=== PATIENT | female | born 1945 | race Caucasian/White ===

== ENCOUNTER 2024-12-05 10:07 | Observation (INO) | payer MEDICARE, OTHER, SELFPAY ==
[2024-12-05] VITALS (8 sets, daily range): BP systolic 133–165; BP diastolic 53–77; PULSE 57–65; RESP 15–97; TEMP 35.6–36.7; O2SAT 18–98; BMI 25.9; BMI 26.0; BMI 26.6
--- NOTE | 2024-12-05 10:31 | EKG12_ITS ---
Test Reason : NEURO Blood Pressure : */* mmHG Vent. Rate : 60 BPM Atrial Rate : 60 BPM P-R Int : 154 ms QRS Dur : 84 ms QT Int : 406 ms P-R-T Axes : 64 -16 48 degrees QTcB Int : 406 ms Normal sinus rhythm Normal ECG Confirmed by David Priest ([id number]), map editor CHARLY MORFIN ([id number]) on 12/06/2024 7:46:46 AM Referred By: Confirmed By: David Priest
--- NOTE | 2024-12-05 10:31 | MRI_ITS ---
PROCEDURE: BRAIN WITHOUT CONTRAST 12/05/2024 REASON FOR EXAM: 79-year-old female, intermittent visual loss since fall approximately 1 month ago, unspecified laterally. TECHNIQUE: Noncontrast brain MRI. COMPARISON: None. FINDINGS: Brain: Mild cerebral atrophy and chronic periventricular white matter disease. No abnormal areas of parenchymal restricted diffusion to suggest acute ischemia or infarction. Ventricles: Consistent with the overall degree of cerebral atrophy. No ventriculomegaly. Major Intracranial Vessels: Abnormal increased signal on T2 FLAIR imaging within the left internal jugular vein, which partially extends into the proximal left transverse sinus (for example series 5, images 2- 4, and series 5, image 6). Sinuses: The mastoids and visualized paranasal sinuses are well-aerated. Orbits: Retained metallic foreign body within the medial right orbit, presumably from prior cataract surgery. Streak artifact slightly limits orbit evaluation. MRI/Brain without Contrast IMPRESSION: 1. Abnormal increased signal on T2 imaging within the left internal jugular vei n, extending into the proximal left transverse sinus, concerning for thrombus. MRV is recommended for further evaluation. 2. No abnormal parenchymal restricted diffusion to suggest acute ischemia or in farct. Dr. Hudson discussed these findings with Dr. Gutierrez via telephone at 2:55 pm o n 12/05/24. Reading Location: [id number]
[2024-12-05 11:09] LABS: Absolute Lymphocyte Count 1.54 X10^3/uL (0.83-4.51); Basophil# 0.02 X10^3/uL; Basophil% 0.4 % (0-1); Eosinophils% 1.9 % (0-5); Hematocrit 35.6 % (37-47); Hemoglobin 12.2 g/dL (12.0-15.0); Lymphocyte # 1.54 X10^3/ul (0.83-4.51); Lymphocyte % 29.6 % (19-41); Mean Corp Hgb Conc 34.3 g/dL (32-36); Mean Corpuscular Hgb 31.6 pg (27.0-32.0); Mean Corpuscular Volume 92.2 fL (81-99); Mean Platelet Vol. 9.8 fl (6.2-12.0); Monocyte% 9.6 % (0-10); NRBC Flagged by Analyzer 0 % (0-5); Neutrophil # 3.02 X10^3/uL (2.7-7.7); Neutrophil % 58.1 % (47-70); Platelet Count 179 K/mm3 (150-450); RBC Distribution Width CV 12.8 % (11.6-14.6); RBC Distribution Width SD 43.1 fl (35.1-43.9); Red Blood Count 3.86 M/mm3 (4.2-5.4); White Blood Count 5.2 K/mm3 (4.4-11.0)
--- NOTE | 2024-12-05 11:37 | ED.VIS.STROK ---
[facility] <Dr. Pardeep Gutierrez MD - Last Filed: 12/06/24 08:19> History of Present Illness Chief Complaint: Neuro S/Sx Detail of Chief Complaint: Intermittent visual field loss Informant: patient Onset/Context/Timing Onset: Weeks (Weeks, greater than 1 month) Context: Sudden Onset Timing: Intermittent Onset: Patient states she can be reading and loses sight of some of the words. Sh Current Severity: Gone Maximum Severity: Moderate Worsened by: Nothing Relieved by: Nothing Associated Symptoms Associated Symptoms: Positive for Headache; Negative for Nausea, Vomiting or Chest Pain Narrative Narrative: Patient is a 79-year-old woman. She has history of hypothyroidism. She had a fall when in [place] November 10. She CAT scan at that time that was interpreted as negative and told she had a concussion. Her symptoms started prior to the fall. She had an episode yesterday. She did not come in yesterday because she thought nothing of it since it has been 29 for greater than a month. She told her daughter who recommended she come to the emergency department. Presently patient has no symptoms. She does have a headache with the visual symptoms. Believes it to be bilateral. She does have history of valvular heart disease that is nonrheumatic. She states she does have a known heart murmur. Prior similar symptoms: No Recent Illness/Hospitalization: Yes (Seen at outside facility for traumatic head trauma, concussion) [facility] <Dr. Pardeep Gutierrez MD - Last Filed: 12/06/24 08:19> [facility] Medical History Hypothyroidism Non-smoker Home Medications ?Medication ?Instructions ?Recorded ?Last Taken ?Type aspirin 81 mg tablet,delayed 81 mg PO DAILY 12/05/24 12/05/24 History release (Adult Aspirin Regimen) calcium carbonate (Calcium 600) 1,200 mg PO QHS 12/05/24 12/04/24 History collagen,hydrolysate 500 mg-biotin 3 cap PO QHS supplement 12/05/24 12/05/24 18:00 History 800 mcg-ascorbic acid 50 mg 3 caps capsule (Collagen 1500 Plus C) levothyroxine 88 mcg tablet 88 mcg PO DAILY 12/05/24 12/05/24 History (Euthyrox) multivitamin (Daily Multi-Vitamin 1 tab PO QHS 12/05/24 12/04/24 History tablet) Allergy/AdvReac Type Severity Reaction Status Date / Time No Known Allergies Allergy Verified 12/05/24 10:08 Social History Smoking Status: Never smoker ROS <Dr. Pardeep Gutierrez MD - Last Filed: 12/06/24 08:19> ROS ED Constitutional Constitutional ED: Denies chills, fever(s) or subjective Eyes Eyes: Reports change in vision bilateral; Denies blurry vision or diplopia ENT ENT ED: Denies ear pain, rhinorrhea or sore throat Cardiovascular Cardiovascular: Denies chest pain or palpitations Respiratory/Chest Respiratory/Chest: Denies cough, dyspnea or dyspnea on exertion Gastrointestinal Gastrointestinal: Denies nausea or vomiting Genitourinary Genitourinary ED: Denies dysuria, hematuria or urinary frequency Musculoskeletal Musculoskeletal: Denies arthralgias or myalgias Integumentary Denies rash Neurologic Neurologic: Reports headache(s) and other Details: No problems with coordination or balance. No motor weakness. No troubles with speech or swallowing ; Denies paresthesias or weakness Psychiatric Psychiatric: Denies anxiety Hematologic/Lymphatic Hematologic/Lymphatic: Denies easy bleeding or easy bruising EXAM <Dr. Pardeep Gutierrez MD - Last Filed: 12/06/24 08:19> Physical Exam Const Vital Signs: 12/05/24 10:08 12/05/24 11:08 12/05/24 12:00 Temperature 96.0 F L Temperature Source Temporal Pulse Rate 62 57 L 58 L Respiratory Rate 16 16 15 Blood Pressure 165/69 H 141/61 H 141/61 H Blood Pressure Mean 101 87 87 Pulse Ox 98 96 95 Oxygen Delivery Method Room Air Room Air Room Air 12/05/24 13:00 12/05/24 14:00 12/05/24 16:09 Temperature Temperature Source Pulse Rate 60 61 63 Respiratory Rate 97 H 16 Blood Pressure 141/77 H 142/53 H 133/71 H Blood Pressure Mean 98 82 91 Pulse Ox 18 97 96 Oxygen Delivery Method Room Air 12/05/24 17:40 Temperature 98.0 F Temperature Source Pulse Rate 65 Respiratory Rate 16 Blood Pressure 141/55 H Blood Pressure Mean 83 Pulse Ox 95 Oxygen Delivery Method Positive well nourished and well developed Constitutional Narrative: Blood pressure is elevated. General Appearance ED: well developed HEENT Reports moist mucous membranes atraumatic Nose: other Other Details: Normal. External auditory canal normal. Eyes PERRL and EOMs intact bilaterally Eyes Narrative: There is no nystagmus. There is no APD. General Eye ED: Negative for pale conjunctiva or scleral icterus Neck no lymphadenopathy, supple and no JVD Neck Narrative: Patient is transmission of aortic stenotic murmur to the neck. Chest Wall inspection of chest normal and palpation of chest normal Resp normal respiratory effort and clear to auscultation bilaterally Cardio Cardio Narrative: Patient has a grade 2 AAS murmur and a grade 2 MR murmur. Rate: regular rate Rhythm: regular rhythm Heart Sounds: S1 normal and S2 normal GI normal to inspection, nondistended, normoactive bowel sounds, soft to palpation, non-tender, non-distended and no masses GI Narrative: No palpable pulsatile mass. Extremity normal to inspection Neuro oriented x3, CN's II-XII intact bilaterally and no sensory deficits noted Neuro Narrative: Romberg with eyes open and close normal. Tandem gait is normal. There is no clonus Babinski sign noted. [place] Coma Scale: document GCS findings Spontaneous Obeys Commands Oriented 15 Sensorium / Orientation: alert Speech: speech normal Gait (Neuro): normal gait Motor Exam: strength 5/5 throughout Psych mental status grossly normal Skin no wounds Lesions: no lesions Rashes: no rashes NIHSS NIHSS Initial: 1a Level of Consciousness: 0 1b LOC Questions (Score 2 if aphasic/stupor): 0 1c LOC Commands (Only score 1st attempt): 0 2 Best Gaze (If aphasic, use reflexive mvmts.): 0 3 Visual: 0 4 Facial Palsy: 0 5 Motor Arm Right (UN = amputation/fusion): 0 5 Motor Arm Left: 0 6 Motor Leg Right: 0 6 Motor Leg Left: 0 7 Limb ataxia (Only + if out of proportion): 0 8 Sensory (Aphasia/stupor=0 or 1, coma=2): 0 9 Best Language: 0 10 Dysarthria (mute, coma=2, intubated=UN): 0 11 Extinction and Inattention (only scored if +): 0 Total Score: 0 <Dr. Hector Rojas, DO - Last Filed: 12/05/24 17:24> Physical Exam Const Vital Signs: 12/05/24 10:08 12/05/24 11:08 12/05/24 12:00 Temperature 96.0 F L Temperature Source Temporal Pulse Rate 62 57 L 58 L Respiratory Rate 16 16 15 Blood Pressure 165/69 H 141/61 H 141/61 H Blood Pressure Mean 101 87 87 Pulse Ox 98 96 95 Oxygen Delivery Method Room Air Room Air Room Air 12/05/24 13:00 12/05/24 14:00 12/05/24 16:09 Temperature Temperature Source Pulse Rate 60 61 63 Respiratory Rate 97 H 16 Blood Pressure 141/77 H 142/53 H 133/71 H Blood Pressure Mean 98 82 91 Pulse Ox 18 97 96 Oxygen Delivery Method Room Air 12/05/24 17:40 Temperature 98.0 F Temperature Source Pulse Rate 65 Respiratory Rate 16 Blood Pressure 141/55 H Blood Pressure Mean 83 Pulse Ox 95 Oxygen Delivery Method Neuro [place] Coma Scale: document GCS findings 15 NIHSS NIHSS Initial: Total Score: 0 MDM <Dr. Pardeep Gutierrez MD - Last Filed: 12/06/24 08:19> MDM MDM Narrative Medical decision making narrative: Patient with intermittent visual disturbance/field loss. Presently she has no symptoms and NIH is 0. This may represent a complex migraine, stuttering TIA involving the posterior circulation possible neoplasm. Since patient had a CAT scan November 10 and was unremarkable MRI was ordered. Basic blood work was ordered as well as an ESR to assess for vasculitis. Lab Data Attestation: I reviewed the patient's lab results. Labs: Laboratory Results - last 24 hr 12/05/24 12/05/24 11:00 17:35 WBC 5.2 RBC 3.86 L Hgb 12.2 Hct 35.6 L MCV 92.2 MCH 31.6 MCHC 34.3 RDW Std Deviation 43.1 RDW Coeff of Dillan 12.8 Plt Count 179 MPV 9.8 Immature Gran % (Auto) 0.400 Neut % (Auto) 58.1 Lymph % (Auto) 29.6 [place] % (Auto) 9.6 Eos % (Auto) 1.9 Baso % (Auto) 0.4 Absolute Neuts (auto) 3.0 Absolute Lymphs (auto) 1.54 Nucleated RBC % 0 ESR 15 PT 14.3 INR 1.1 APTT 29.6 Sodium 141 Potassium 4.0 Chloride 106 Carbon Dioxide 23.4 Anion Gap 11 BUN 10 Creatinine 0.78 Estim Creat Clear Calc 54.00 Est GFR (MDRD) Non-Af 78 BUN/Creatinine Ratio 13.2 Glucose 100 H Calcium 9.3 Magnesium 2.1 Radiography Diagnostic Testing: Clinical Impression(s) from Imaging Studies Brain MRI 12/05/24 10:31 IMPRESSION: 1. Abnormal increased signal on T2 imaging within the left internal jugular vein, extending into the proximal left transverse sinus, concerning for thrombus. MRV is recommended for further evaluation. 2. No abnormal parenchymal restricted diffusion to suggest acute ischemia or infarct. Dr. Hudson discussed these findings with Dr. Gutierrez via telephone at 2:55 pm on 12/05/24. 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 Dr. Hudson discussed these findings with Dr. Meza via telephone at 4:15 pm on 12/05/24. Reading Location: [facility] MRV was ordered. Patient was told why an MRV was ordered. EKG Initial EKG: Attestation: I personally reviewed and interpreted this EKG as follows: Interpretation: Sinus Rhythm (CBC is normal rate is 60. The EKG is normal. [place] interval is under 54 ms. QRS duration 84 ms. QT duration 106 ms. [place] is normal. This was obtained to assess for dysrhythmia and or evidence of prior ischemia.) Management Discussion w/another healthcare provider: Radiologist (Radiologist called regarding MRI and recommended DWIGHT. MRV was ordered.) Treatment and Re-Evaluation Narrative: Disposition to be made by Dr. Hector Valentino after MRV has been completed and interpreted by radiologist. <Dr. Hector Rojas, DO - Last Filed: 12/05/24 17:24> [facility] Lab Data Labs: Laboratory Results - last 24 hr 12/05/24 12/05/24 11:00 17:35 WBC 5.2 RBC 3.86 L Hgb 12.2 Hct 35.6 L MCV 92.2 MCH 31.6 MCHC 34.3 RDW Std Deviation 43.1 RDW Coeff of Dillan 12.8 Plt Count 179 MPV 9.8 Immature Gran % (Auto) 0.400 Neut % (Auto) 58.1 Lymph % (Auto) 29.6 [place] % (Auto) 9.6 Eos % (Auto) 1.9 Baso % (Auto) 0.4 Absolute Neuts (auto) 3.0 Absolute Lymphs (auto) 1.54 Nucleated RBC % 0 ESR 15 PT 14.3 INR 1.1 APTT 29.6 Sodium 141 Potassium 4.0 Chloride 106 Carbon Dioxide 23.4 Anion Gap 11 BUN 10 Creatinine 0.78 Estim Creat Clear Calc 54.00 Est GFR (MDRD) Non-Af 78 BUN/Creatinine Ratio 13.2 Glucose 100 H Calcium 9.3 Magnesium 2.1 Radiography Diagnostic Testing: Clinical Impression(s) from Imaging Studies Brain MRI 12/05/24 10:31 IMPRESSION: 1. Abnormal increased signal on T2 imaging within the left internal jugular vein, extending into the proximal left transverse sinus, concerning for thrombus. MRV is recommended for further evaluation. 2. No abnormal parenchymal restricted diffusion to suggest acute ischemia or infarct. Dr. Hudson discussed these findings with Dr. Gutierrez via telephone at 2:55 pm on 12/05/24. 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 Dr. Hudson discussed these findings with Dr. Meza via telephone at 4:15 pm on 12/05/24. Reading Location: [facility] Management Discussion w/another healthcare provider: Hospitalist (Dr. Coley) and Transit Coach Operator (Dr. Perez, stroke neurologist) Treatment and Re-Evaluation Narrative: Disposition to be made by Dr. Hector Rojas after MRV has been completed and interpreted by radiologist. Care of the patient turned over to me. I was notified by radiologist that there is severe stenosis/occlusion of the left transverse sinus and proximal left internal jugular vein. I discussed the findings with the patient. Case was discussed with hospitalist who recommended consulting neurology. Case was discussed with stroke neurologist, Dr. Perez at [facility]. He recommended full dose heparin drip and repeat CT scan when therapeutic. He recommends starting patient on Eliquis upon discharge. Then have the patient follow-up in 3 months with a CTV. Case was discussed with the hospitalist again. She will admit the patient to her service. Patient and family understood and were agreeable with the plan. All questions were answered. Discharge Plan Dx/Rx/DC Orders Clinical Impression: Cerebral venous sinus thrombosis, acute, Visual disturbance, Elevated blood pressure reading Disposition Disposition: Acute Care Hospital [facility] Discharge Date/Time: 12/05/24 19:03
[2024-12-05 11:55] LABS: Anion Gap 11 (5-15); BUN 10 mg/dL (4-19); BUN/Creat Ratio 13.2 RATIO (10-20); Calcium,Total 9.3 mg/dL (7.6-11.0); Carbon Dioxide 23.4 mmol/L (21.0-32.0); Chloride 106 mmol/L (98-108); Creatinine, Serum 0.78 mg/dL (0.70-1.20); EST Glomerular Filtration Rate 78 (>60); Glucose 100 mg/dL (70-99); Sodium Level 141 mmol/L (133-145)
[2024-12-05 12:44] LABS: Erythrocyte Sedimentation Rate 15 mm/hr (0-30)
--- NOTE | 2024-12-05 14:57 | MRI_ITS ---
EXAM: MRV HEAD WITHOUT CONTRAST CLINICAL HISTORY: 79-year-old female, concern for venous thrombosis. COMPARISON: Same day head MRI. TECHNIQUE: Magnetic resonance venography of the head was performed with intravenous contrast and using Gadavist. 3-D MIP postprocessing was performed. FINDINGS: The superior sagittal sinus, the right transverse and sigmoid sinuses, and proximal right internal jugular veins are patent. There is marked stenosis/near-complete occlusion of the left transverse sinus, with partial re-opacification within the sigmoid sinus, and complete occlusion of the proximal left internal jugular vein. The inferior sagittal sinus is diminutive. The internal cerebral veins, basal veins of Linda, vein of Abdullahi, and straight sinus are patent. 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 Dr. Hudson discussed these findings with Dr. Meza via telephone at 4:15 pm on 12/05/24. Reading Location: [id number]
[2024-12-05] MEDS: HEPARIN/D5w 25,000 UNITS 25,000 UNITS/250 ML IV.SOLN. 10 UNITS CONT INF (17:46)
[2024-12-05] MEDS: Heparin Injection (Vial) 5,000 UNIT/ML VIAL 4500 UNIT IV (17:47)
--- NOTE | 2024-12-05 17:51 | HP.PCM.HOS_ITS ---
HPI - General General Date of Admission: 12/05/24 Date of Service: 12/05/24 Chief Complaint: intermittent vision loss HPI Narrative KASH RIGGS, is a 79 F with a PMH as outlined who presents via the ED on 12/05/2024 with a complaint of intermittent vision impairment. Patient stated symptoms have been going on for several months. She was in [place] about a month ago and says she was playing pickle ball but fell due to the impaired vision. She could not tell if it was worse in 1 eye or the other. Her daughter therefore asked her to come back to [place] to rest. She did so but had a recurrence of the intermittent vision impairment so she decided to come into the ED. She had associated occasional headaches. She denied any slurring of his speech, numbness or tingling or any focal weakness. She denied any history of a stroke. Review of systems otherwise negative. NIH stroke scale was 0. Vitals at time of review were blood pressure of 141/55, pulse rate of 65 respiratory of 16. Temperature was 98 Fahrenheit and she was saturating at 95% on room air. CBC showed hemoglobin of 12.2 with WBC of 5.2 and platelets of 179. INR was 1.1. Chemistry showed sodium of 141, potassium of 4 and anion gap of 11. Bicarb was 23.4. MRI of the brain showed abnormal increased signal on T2 imaging within the left internal jugular vein, extending into the proximal left transverse sinus concerning for thrombus and no evidence of acute ischemia or infarct. MRV of the brain was ordered and showed severe stenosis versus occlusion of the left transverse sinus and proximal left internal jugular vein. This was discussed with the neurologist at [facility] who recommended that patient be started on heparin drip and will need long-term anticoagulation. [facility] Home Medications ?Medication ?Instructions ?Recorded ?Last Taken ?Type aspirin 81 mg tablet,delayed 81 mg PO DAILY 12/05/24 0 12/05/24 History release (Adult Aspirin Regimen) calcium carbonate (Calcium 600) 1,200 mg PO QHS 12/04/24 History levothyroxine 88 mcg tablet 88 mcg PO DAILY 12/05/24 0 12/05/24 History (Euthyrox) multivitamin (Daily Multi-Vitamin 1 tab PO QHS 5 12/04/24 History tablet) Allergy/AdvReac Type Severity Reaction Status Date / Time No Known Allergies Allergy Verified 12/05/24 10:08 Social History Smoking Status: Never smoker ROS Constitutional Constitutional: Denies anorexia, fatigue, fever(s), malaise or weakness Eyes Eyes: Reports blurry vision and change in vision; Denies discharge from eye(s), double vision, erythema, eye pain or loss of vision ENT HEENT: Denies dysphagia, headache(s) or sore throat Cardiovascular Cardiovascular: Denies chest pain, dyspnea on exertion, edema, lightheadedness, orthopnea, palpitations, paroxysmal nocturnal dyspnea, rapid heart rate or syncope Respiratory/Chest Respiratory/Chest: Denies cough, dyspnea, productive cough, shortness of breath at rest or shortness of breath with exertion Gastrointestinal Gastrointestinal: Denies abdominal pain, constipation, diarrhea, nausea or vomiting Genitourinary Genitourinary: Denies dysuria Neurologic Neurologic: Reports headache(s); Denies abnormal speech, confusion, dizziness, focal weakness, numbness, paresthesias, seizure-like activity, seizures, syncope, tingling or tremor(s) Psychiatric Psychiatric: Denies anxiety Vital Signs Vital Signs Vital Signs: 12/05/24 10:08 12/05/24 11:08 12/05/24 12:00 Temperature 96.0 F L Temperature Source Temporal Pulse Rate 62 57 L 58 L Respiratory Rate 16 16 15 Blood Pressure 165/69 H 141/61 H 141/61 H Blood Pressure Mean 101 87 87 Pulse Ox 98 96 95 Oxygen Delivery Method Room Air Room Air Room Air 12/05/24 13:00 12/05/24 14:00 12/05/24 16:09 Temperature Temperature Source Pulse Rate 60 61 63 Respiratory Rate 97 H 16 Blood Pressure 141/77 H 142/53 H 133/71 H Blood Pressure Mean 98 82 91 Pulse Ox 18 97 96 Oxygen Delivery Method Room Air 12/05/24 17:40 Temperature 98.0 F Temperature Source Pulse Rate 65 Respiratory Rate 16 Blood Pressure 141/55 H Blood Pressure Mean 83 Pulse Ox 95 Oxygen Delivery Method Weight Weight: 146 lb 13.246 oz Body Mass Index (BMI) 26.0 Physical Exam Const alert, oriented x3 and no apparent distress General Appearance: cooperative HEENT normocephalic, head/scalp atraumatic, hearing grossly normal bilaterally, moist oral mucous membranes and oropharynx normal Mouth: oral and palatal mucosa normal Eyes PERRL, EOMs intact bilaterally and conjunctivae normal Neck no lymphadenopathy and supple Resp normal respiratory effort, no retractions, no use of accessory muscles and clear to auscultation bilaterally Cardio regular rate, regular rhythm, S1 normal heart sound, S2 normal heart sound and no murmurs GI normal to inspection, nondistended, normoactive bowel sounds, soft to palpation, non-tender and non-distended Extremity normal to inspection, full ROM and no clubbing, cyanosis or edema Neuro oriented x3, moves all extremities and no focal motor deficits Neuro Narrative: has mild blurred vision in both eyes, worse in the right eye. Extraocular muscles intact. Sensorium / Orientation: awake and alert Motor Exam: strength 5/5 throughout Psych affect normal Results Lab / Micro Data 12/05/24 11:00 12/05/24 11:00 Labs: Laboratory Results - last 24 hr 12/05/24 11:00: WBC 5.2, RBC 3.86 L, Hgb 12.2, Hct 35.6 L, MCV 92.2, MCH 31.6, MCHC 34.3, RDW Std Deviation 43.1, RDW Coeff of Dillan 12.8, Plt Count 179, MPV 9.8, Immature Gran % (Auto) 0.400, Neut % (Auto) 58.1, Lymph % (Auto) 29.6, [place] % (Auto) 9.6, Eos % (Auto) 1.9, Baso % (Auto) 0.4, Absolute Neuts (auto) 3.0, Absolute Lymphs (auto) 1.54, Nucleated RBC % 0, ESR 15, Sodium 141, Potassium 4.0, Chloride 106, Carbon Dioxide 23.4, Anion Gap 11, BUN 10, Creatinine 0.78, Estim Creat Clear Calc 54.00, Est GFR (MDRD) Non-Af 78, BUN/Creatinine Ratio 13.2, Glucose 100 H, Calcium 9.3 Imaging Radiology Impression Brain MRI 12/05/24 10:31 IMPRESSION: 1. Abnormal increased signal on T2 imaging within the left internal jugular vein, extending into the proximal left transverse sinus, concerning for thrombus. MRV is recommended for further evaluation. 2. No abnormal parenchymal restricted diffusion to suggest acute ischemia or infarct. Dr. Hudson discussed these findings with Dr. Gutierrez via telephone at 2:55 pm on 12/05/24. 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 Dr. Hudson discussed these findings with Dr. Meza via telephone at 4:15 pm on 12/05/24. Reading Location: [facility] Assessment & Plan Assessment/Plan (1) Visual disturbance: (2) Cerebral venous sinus thrombosis, acute: (3) Elevated blood pressure reading: PLAN: Plan # Strokelike symptoms * Admitted with a complaint of intermittent vision loss which had been going on for several months * has blurred vision in both eyes, worse in the right eye * Had CT of the brain done earlier this month when she came in to the ED which was negative * she therefore had an MRI of the brain this time which showed abnormal increased signal on T2 imaging within the left internal jugular vein, extending into the proximal left transverse sinus concerning for thrombus. There was no evidence of acute ischemia or infarct. * MRV done showed severe stenosis/occlusion of the left transverse sinus and proximal left internal jugular vein. * this was discussed with the neurologist at [facility] who recommended patient be started on heparin drip * consult neurology * continue heparin drip * get 2D echo * on aspirin 81mg daily * tylenol prn for headache * #Elevated blood pressure * Bp in the 140s systolic. Was 165/99 on admission * does not have a history of high blood pressure * IV hydralazine prn * if BP remains elevated during hospital admission, will consider adding an oral BP med * #Hypothyroidism: on synthroid DVT prophylaxis: already on heparin drip Code status: full code * Patient and daughter counseled extensively about different types of CODE STATUS including full code, DNR CCA and DNR CCA. * Patient elects to be full code. * Total [id number] time 17 minutes. * Charges/Coding Visit Charges Inpatient E&M: 80444 Init Hosp L2 Procedures Hospitalists Procedures: 33130 Advncd Care Plan 30 Min
[2024-12-05 18:21] LABS: International Normalized Ratio 1.1; Prothrombin Time (Protime)PT. 14.3 SECONDS (11.7-14.9)
[2024-12-05 18:22] LABS: Partial Thromboplast Time 29.6 Seconds (24.1-36.2)
--- NOTE | 2024-12-05 20:20 | ECHOD_ITS ---
Reason For Study Reason For Study: TIA/CVA Procedure This was a 2D Doppler, Color Flow transthoracic echocardiogram. Exam performed portable in patient room. Left Ventricle Normal LV size. Left ventricular systolic function is normal. The left ventricular ejection fraction is 60 %. No regional wall motion abnormalities noted. Right Ventricle Normal RV size. Normal systolic function. Atria Normal left atrium. Normal right atrium. Mitral Valve Normal mitral valve. Tricuspid Valve Normal tricuspid valve. Mild (1+) tricuspid valve insufficiency. Pulmonary artery systolic pressure is 30 mmHg. Aortic Valve Trisinus/trileaflet aortic valve. Mild focal aortic valve calcification. Peak aortic valve gradient 25 mmHg. Mean aortic valve gradient 11 mmHg. Mild (1+) aortic valve insufficiency. Pulmonic Valve Normal pulmonic valve. Great Vessels Normal aortic root. The pulmonary artery is normal size. Inferior vena cava collapse with respiration. Pericardium/Pleural No pericardial effusion. MMode/2D Measurements & Calculations LVIDd: 4.9 cm IVSd: 1.2 cm LVOT diam: 2.0 cm LVIDs: 2.7 cm LVPWd: 0.91 cm LVOT area: 3.2 cm2 FS: 44.5 % Ao root diam: 3.0 cm asc Aorta Diam: 3.4 cm LAV(MOD- bp): 42.3 ml LAV(MOD- bp) Indexed: 24.7 ml/m2 LAV(MOD- sp2): 40.0 ml LAV(MOD- sp4): 44.8 ml SV(MOD-sp4): 56.7 ml SV(sp4- el): 62.7 ml LVAd ap4: 27.9 cm2 LVLd ap4: 7.0 cm SI(MOD-sp4): 33.1 ml/m2 EDV(MOD-sp4): 89.7 ml EDV(sp4-el): 94.9 ml LVAs ap4: 14.8 cm2 LVLs ap4: 5.8 cm ESV(MOD-sp4): 32.9 ml ESV(sp4-el): 32.2 ml EF(MOD-sp4): 63.3 % EF(sp4-el): 66.0 % LA A4 area: 16.4 cm2 LA dimension(2D): 4.2 cm RA A4 area: 11.6 cm2 TAPSE: 2.2 cm Time Measurements MV dec time: 0.19 sec Doppler Measurements & Calculations MV E max juliocesar: 74.1 cm/sec Lat Peak E' Juliocesar: 9.6 cm/sec Med Peak E' Juliocesar: 8.5 cm/sec MV A max juliocesar: 88.3 cm/sec E/E' lat: 7.7 E/E' med: 8.7 MV E/A: 0.84 MV V2 max: 104.8 cm/sec MV P1/2t max juliocesar: 88.3 cm/sec Ao V2 max: 248.8 cm/sec MV max P.4 mmHg MV P1/2t: 77.1 msec Ao max P.8 mmHg MV V2 mean: 51.7 cm/sec Ao V2 mean: 152.7 cm/sec MV mean P.3 mmHg MV dec slope: 335.5 cm/sec2 Ao mean P.1 mmHg MV V2 VTI: 33.2 cm MVA(P1/2t): 2.9 cm2 Ao V2 VTI: 59.3 cm AV (velocity ratio): 0.60 MVA(VTI): 3.4 cm2 KERRY(I,D): 1.9 cm2 KERRY(V,D): 1.7 cm2 AI max juliocesar: 424.6 cm/sec LV V1 max: 131.9 cm/sec SV(LVOT): 113.7 ml AI max P.2 mmHg LV V1 max P.0 mmHg AI dec slope: 183.2 cm/sec2 LV V1 mean P.7 mmHg AI P1/2t: 678.8 msec LV V1 mean: 103.1 cm/sec LV V1 VTI: 35.3 cm PA V2 max: 110.2 cm/sec TR max juliocesar: 258.9 cm/sec TR max P.8 mmHg ECHO/Echo Complete Interpretation Summary Normal LV size. Left ventricular systolic function is normal. The left ventricular ejection fraction is 60 %. Mild focal aortic valve calcification. Mean aortic valve gradient 11 mmHg. Ordering Physician: Lucinda Magana Performed By: Wilfrid Barrera RCS
--- NOTE | 2024-12-05 20:53 | CASEMGMT ---
Care Management Face to Face with patient for initial transition planning/care coordination assessment in the ED.? This ad copy writer introduced self and role at [facility]. Patient alert and oriented. Patient willing to participate in assessment and is able to answer all questions appropriately.? Care providers, pharmacy, and demographics verified. Admitting Diagnosis: nuero s/SX Other diagnosis history: ?hypothyroidism, valvular heart disease, heart murmur PCP: has a PCP in [facility] that she sees annually Specialists: none [facility]erred [facility]acy: [facility] Insurance: Medicare Prescription Benefit: [facility] Living Will/HPOA: ?Has both completed, family to bring in LNOK: daughter Living Arrangements: ?Patients primary resident is in [place], spends rodriguez in [place] and spends time with daughter and son in [place] Transportation: patient drives DME: ?patient reports to having medical equipment in her home in [place] that her had used before he passed, nothing in [place] with her children. HHC: None ? SNF/Rehab: None Community Resources: None Behavioral Health History: None Patient goals: Patient wishes to discharge home, denies need for home health care at this time. Patient denies any further needs or concerns at this time. Disposition Plan: admission to acute; RN CM/SW to follow for discharge planning needs that may arise. Aimee Brady, PATTERNMAKER GRADER, DRIVER GUARD
[2024-12-05] MEDS: Multivitamins,Therapeutic Tablet 1 TABLET PO (21:03)
[2024-12-05] MEDS: Calcium (Elemental) 500 MG Tablet 1000 MG PO (21:03)
[2024-12-05] MEDS: Atorvastatin Calcium 40 MG Tablet PO (21:03)
[2024-12-05 21:29] LABS: Magnesium 2.1 mg/dL (1.5-2.2)
[2024-12-06 00:40] LABS: Partial Thromboplast Time 187.8 Seconds (24.1-36.2)
[2024-12-06 00:50] VITALS: BP 133/60; PULSE 63; RESP 18; TEMP 36.7; O2SAT 97
[2024-12-06 01:14] VITALS: BMI 26.6
[2024-12-06 03:52] VITALS: BMI 26.7
[2024-12-06 04:50] VITALS: BP 145/63; PULSE 58; RESP 18; TEMP 36.4; O2SAT 98; BMI 26.7
[2024-12-06] MEDS: Levothyroxine 88 MCG Tablet PO (05:12)
[2024-12-06 08:29] VITALS: O2SAT 97
[2024-12-06 08:50] VITALS: BP 133/59; PULSE 62; RESP 16; TEMP 36.7; O2SAT 96
[2024-12-06 09:03] LABS: Absolute Lymphocyte Count 1.88 X10^3/uL (0.83-4.51); Basophil# 0.04 X10^3/uL; Basophil% 0.7 % (0-1); Eosinophil# 0.11 X10^3/uL; Hematocrit 36.6 % (37-47); Hemoglobin 12.4 g/dL (12.0-15.0); Lymphocyte # 1.88 X10^3/ul (0.83-4.51); Mean Corp Hgb Conc 33.9 g/dL (32-36); Mean Corpuscular Hgb 31.3 pg (27.0-32.0); Mean Corpuscular Volume 92.4 fL (81-99); Mean Platelet Vol. 9.9 fl (6.2-12.0); Monocyte# 0.52 X10^3/uL; Monocyte% 9.4 % (0-10); NRBC Flagged by Analyzer 0 % (0-5); Neutrophil # 2.97 X10^3/uL (2.7-7.7); Neutrophil % 53.7 % (47-70); Platelet Count 180 K/mm3 (150-450); RBC Distribution Width CV 12.9 % (11.6-14.6); RBC Distribution Width SD 43.8 fl (35.1-43.9); Red Blood Count 3.96 M/mm3 (4.2-5.4); White Blood Count 5.5 K/mm3 (4.4-11.0)
[2024-12-06 09:20] LABS: ALB/GLOB Ratio 1.5 RATIO (0.9-2.4); AST(SGOT) 22 U/L (<=31); Alanine Aminotransfer ALT/SGPT 11 U/L (<=34); Albumin, Serum 4.1 g/dL (3.4-4.8); Alkaline Phosphatase 57 U/L (35-104); Anion Gap 11 (5-15); BUN 11 mg/dL (4-19); BUN/Creat Ratio 13.8 RATIO (10-20); Calcium,Total 9.8 mg/dL (7.6-11.0); Carbon Dioxide 24.2 mmol/L (21.0-32.0); Chloride 105 mmol/L (98-108); Cholesterol 210 mg/dL (<=200); Creatinine, Serum 0.78 mg/dL (0.70-1.20); EST Glomerular Filtration Rate 78 (>60); Globulin 2.7 g/dL (2.2-4.2); Glucose 97 mg/dL (70-99); High Density Lipoprotein 79 mg/dL; Low Density Lipoprotein Calc. 118 mg/dL; Potassium 4.3 mmol/L (3.3-5.1); Protein, Total 6.8 g/dL (5.9-8.4); Sodium Level 140 mmol/L (133-145); Total Bilirubin 0.48 mg/dL (0.00-1.30); Triglycerides 66 mg/dL; Very Low Density Lipoprotein 13 mg/dL (5-40); cholesterol:hdl ratio screen 2.66
[2024-12-06 09:40] LABS: Partial Thromboplast Time 61.9 Seconds (24.1-36.2)
[2024-12-06] MEDS: Aspirin 81 MG TAB.CHEW PO (09:57)
[2024-12-06 10:03] LABS: Hemoglobin A1c 5.4 % (<=5.6)
[2024-12-06 11:33] VITALS: BMI 26.7
--- NOTE | 2024-12-06 12:04 | STROKE.CONS ---
Assessment and Plan: Stroke Assessment/Plan KASH RIGGS is a 79 year old right-handed Female with a history of hypothyroidism who presents with 2 months history of episodes of intermittent mild headache and vision changes. She feel the vision has missing spots in bilateral abdalla. Episodes last couple hours, occur 3-4x/week. She presented to [facility] for these symptoms. MRI brain 12/05 showed left proximal IJ occlusion. MRV confirmed. She is on heparin gtt. Neurological examination shows nonfocal exam, NIHSS-0. 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 Recommend switching heparin gtt to NOAC (Eliquis)-- DVT loading dose. 2) DC Aspirin while on eliquis 3) Repeat MRI brain with contrast and MRV in 3 months and follow-up with outpatient neurology clinic. 4) Outpatient referral to ophtho for intermittent vision symptoms Primary team messaged on backline my recs. Tessy Winslow MD HPI Consult Data Date of Consult: 12/06/24 HPI Narrative HPI Narrative: KASH RIGGS is a 79 year old right-handed Female with a history of hypothyroidism who presents with 2 months history of intermittent headache and vision changes. She feel the vision has missing spots in bilateral abdalla. Episodes last couple hours, occur 3-4x/week. The headaches are mild, intermittent. She is walking normal, no other symptoms, she has been feeling well. She had MRI brain 12/05 which showed left proximal IJ occlusion. MRV confirmed. She is on heparin gtt. Currently this morning patient feels back to normal- vision feels normal. Mild RANKIN currently. 133/59. PFSH Medical History Hypothyroidism Non-smoker Home Medications ?Medication ?Instructions ?Recorded ?Last Taken ?Type aspirin 81 mg tablet,delayed 81 mg PO DAILY 12/05/24 12/05/24 History release (Adult Aspirin Regimen) calcium carbonate (Calcium 600) 1,200 mg PO QHS 12/05/24 12/04/24 History collagen,hydrolysate 500 mg-biotin 3 cap PO QHS supplement 12/05/24 12/05/24 18:00 History 800 mcg-ascorbic acid 50 mg 3 caps capsule (Collagen 1500 Plus C) levothyroxine 88 mcg tablet 88 mcg PO DAILY 12/05/24 12/05/24 History (Euthyrox) multivitamin (Daily Multi-Vitamin 1 tab PO QHS 12/05/24 12/04/24 History tablet) Allergy/AdvReac Type Severity Reaction Status Date / Time No Known Allergies Allergy Verified 12/05/24 10:08 Social History Smoking Status: Never smoker Vital Signs Vital Signs Vital Signs: 12/05/24 13:00 12/05/24 14:00 12/05/24 16:09 Temperature Temperature Source Pulse Rate 60 61 63 Pulse Strength Respiratory Rate 97 H 16 Respiratory Effort Respiratory Depth Respiratory Pattern Blood Pressure 141/77 H 142/53 H 133/71 H Blood Pressure Mean 98 82 91 Blood Pressure Source Blood Pressure Position Blood Pressure Location Pulse Ox 18 97 96 Oxygen Delivery Method Room Air 12/05/24 17:40 12/05/24 20:34 12/05/24 22:30 Temperature 98.0 F Temperature Source Pulse Rate 65 Pulse Strength Respiratory Rate 16 Respiratory Effort Normal Non-Labored Respiratory Depth Normal Respiratory Pattern Normal Blood Pressure 141/55 H Blood Pressure Mean 83 Blood Pressure Source Blood Pressure Position Blood Pressure Location Pulse Ox 95 96 Oxygen Delivery Method Room Air Room Air 12/05/24 22:58 12/06/24 00:50 12/06/24 01:12 Temperature 98.1 F Temperature Source Oral Pulse Rate 63 Pulse Strength Normal (2+) Respiratory Rate 18 Respiratory Effort Normal Non-Labored Respiratory Depth Normal Respiratory Pattern Normal Blood Pressure 133/60 H Blood Pressure Mean 84 Blood Pressure Source Monitor Blood Pressure Position Semi-Fowlers Blood Pressure Location Left Arm Pulse Ox 97 Oxygen Delivery Method Room Air Room Air 12/06/24 04:50 12/06/24 08:29 12/06/24 08:33 Temperature 97.5 F L Temperature Source Oral Pulse Rate 58 L Pulse Strength Respiratory Rate 18 Respiratory Effort Normal Non-Labored Respiratory Depth Normal Respiratory Pattern Normal Blood Pressure 145/63 H Blood Pressure Mean 90 Blood Pressure Source Monitor Blood Pressure Position Semi-Fowlers Blood Pressure Location Right Arm Pulse Ox 98 97 Oxygen Delivery Method Room Air Room Air Room Air 12/06/24 08:36 12/06/24 08:50 Temperature 98.1 F Temperature Source Oral Pulse Rate 62 Pulse Strength Normal (2+) Respiratory Rate 16 Respiratory Effort Respiratory Depth Respiratory Pattern Blood Pressure 133/59 H Blood Pressure Mean 83 Blood Pressure Source Monitor Blood Pressure Position Semi-Fowlers Blood Pressure Location Right Arm Pulse Ox 96 Oxygen Delivery Method Room Air Weight Weight: 68.5 kg Body Mass Index (BMI) 26.7 NIHSS NIHSS Nursing Documentation NIHSS Nursing Documentation: NIHSS: Ischemic Stroke/TIA Start: 12/05/24 20:20 Text: For PCU Patients: NIH and Neuro Check every 4 Status: Active hours, PRN and with change in RN caregiver. Freq: [id number] Protocol: Activity Type Activity Date Activity User E-sign Co-sign Detail Recorded Client Recorded Date Recorded By Document 12/06/24 08:50 LEONIE [id number] 12/06/24 09:29 LEONIE 12/06/24 08:50 NIH Stroke Scale [NIHSS] A score of 0 is normal or asymptomatic . Total possible score is 42. Inpatient: RN or Physician to activate a stroke alert for onset of new stroke symptoms or with NIHSS increase >/= 3 points. Following change in neurological status, NIHSS will be performed per physician order or more frequently PRN. -1a. Level of Consciousness Alert; keenly responsive -1b. LOC Questions Answers BOTH questions correctly. -1c. LOC Commands Performs both tasks correctly . -2. Best Gaze Normal -3. Visual No visual loss -4. Facial Palsy Normal symmetrical movements -5a. Left Arm No drift; arm holds 90 (or 45 ) degrees for full 10 seconds -5b. Right Arm No drift; arm holds 90 (or 45 ) degrees for full 10 seconds -6a. Left Leg No drift; leg holds 30-degree position for full 5 seconds -6b. Right Leg No drift; leg holds 30-degree position for full 5 seconds -7. Limb Ataxia Absent -8. Sensory Normal; no sensory loss -9. Best Language No aphasia; normal -10. Dysarthria Normal -11. Extinction and Inattention No abnormality -Total 0 Query Text:A score of 0 is normal or asymptomatic. Total possible score is 42 . ED: Notify Physician for NIHSS increase by > / = 3 points. Inpatient: RN or Physician to activate a stroke alert for NIHSS increase of > / = 3 points. Coma Scale [Assess] -Eye Opening Spontaneous -Motor Obeys Commands -Verbal Oriented [Total] -Coma Scale Total 15 NIHSS 1a. Level of Consciousness: Alert; keenly responsive 1b. LOC Questions: Answers BOTH questions correctly. 1c. LOC Commands: Performs both tasks correctly. 2. Best Gaze: Normal 3. Visual: No visual loss 4. Facial Palsy: Normal symmetrical movements 5a. Left Arm: No drift; arm holds 90 (or 45) degrees for full 10 seconds 5b. Right Arm: No drift; arm holds 90 (or 45) degrees for full 10 seconds 6a. Left Leg: No drift; leg holds 30-degree position for full 5 seconds 6b. Right Leg: No drift; leg holds 30-degree position for full 5 seconds 7. Limb Ataxia: Absent 8. Sensory: Normal; no sensory loss 9. Best Language: No aphasia; normal 10. Dysarthria: Normal 11. Extinction and Inattention: No abnormality Total: 0 Physical Exam Neuro Neuro Narrative: Neurological examination: General: The patient appears nutritionally appropriate, well-groomed, and appears comfortable in no acute distress. Mental Status: The patient?s mental status was normal including orientation. Language was intact. Cranial nerves: Visual abdalla full, and extra-ocular motion was intact. Face motion symmetric. There was no dysarthria. Motor: Normal strength and tone in all four extremities. No pronator drift. Sensation: Intact light touch bilaterally. Coordination: Bilateral finger to nose was normal. There was no dysmetria. Gait: deferred Lab / Micro Data 12/06/24 08:42 12/06/24 08:42 Labs: Laboratory Results - last 24 hr 12/05/24 11:00: ESR 15, Magnesium 2.1 12/05/24 17:35: PT 14.3, INR 1.1, APTT 29.6 12/05/24 23:58: APTT 187.8 H* 12/06/24 08:42: WBC 5.5, RBC 3.96 L, Hgb 12.4, Hct 36.6 L, MCV 92.4, MCH 31.3, MCHC 33.9, RDW Std Deviation 43.8, RDW Coeff of Dillan 12.9, Plt Count 180, MPV 9.9, Immature Gran % (Auto) 0.200, Neut % (Auto) 53.7, Lymph % (Auto) 34.0, Baxter % (Auto) 9.4, Eos % (Auto) 2.0, Baso % (Auto) 0.7, Absolute Neuts (auto) 3.0, Absolute Lymphs (auto) 1.88, Nucleated RBC % 0, APTT 61.9 H, Sodium 140, Potassium 4.3, Chloride 105, Carbon Dioxide 24.2, Anion Gap 11, BUN 11, Creatinine 0.78, Estim Creat Clear Calc 54.70, Est GFR (MDRD) Non-Af 78, BUN/Creatinine Ratio 13.8, Glucose 97, Hemoglobin A1c 5.4 L, Calcium 9.8, Total Bilirubin 0.48, AST 22, ALT 11, Alkaline Phosphatase 57, Total Protein 6.8, Albumin 4.1, Globulin 2.7, Albumin/Globulin Ratio 1.5, Triglycerides 66, Cholesterol 210 H, LDL Cholesterol, Calc 118, VLDL Cholesterol 13, HDL Cholesterol 79, Cholesterol/HDL Ratio 2.66, TSH 1.840 Imaging Radiology Impression Brain MRI 12/05/24 10:31 IMPRESSION: 1. Abnormal increased signal on T2 imaging within the left internal jugular vein, extending into the proximal left transverse sinus, concerning for thrombus. MRV is recommended for further evaluation. 2. No abnormal parenchymal restricted diffusion to suggest acute ischemia or infarct. Dr. Hudson discussed these findings with Dr. Gutierrez via telephone at 2:55 pm on 12/05/24. 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 Dr. Hudson discussed these findings with Dr. Meza via telephone at 4:15 pm on 12/05/24. Reading Location: [facility] Echocardiogram 12/05/24 20:20 Interpretation Summary Normal LV size. Left ventricular systolic function is normal. The left ventricular ejection fraction is 60 %. Mild focal aortic valve calcification. Mean aortic valve gradient 11 mmHg. Ordering Physician: Lucinda Magana Performed By: Wilfrid Barrera, RCS Active Medications Active Medications Active Medications: Current Medications Generic Name Dose Route Start Last Admin Trade Name Freq PRN Reason Stop Dose Admin Acetaminophen 650 mg 12/05/24 20:19 Acetaminophen 325 Mg Tablet PO Q4H PRN PRN Fever, pain 1-06/15 Al Hydroxide/Mg Hydroxide 30 ml 12/05/24 20:19 Mag Hydrox/Al Hydrox/Simeth 30 Ml Udc PO Q6H PRN PRN Gastric Burning Albuterol Sulfate 2.5 mg 12/05/24 20:19 Albuterol 2.5 Mg/3 Ml Vial.Neb. INHALATION Q2H PRN PRN Dyspnea, wheezing Aspirin 81 mg 12/06/24 08:00 12/06/24 09:57 Aspirin 81 Mg Tab.Chew PO 81 mg BREAKFAST CHRISTIANE Administration Atorvastatin Calcium 40 mg 12/05/24 22:00 12/05/24 21:03 Atorvastatin Calcium 40 Mg Tablet PO 40 mg QHS CHRISTIANE Administration Calcium Carbonate 1,000 mg 12/05/24 22:00 12/05/24 21:03 Calcium (Elemental) 500 Mg Tablet PO 1,000 mg QHS CHRISTIANE Administration Guaifenesin 20 ml 12/05/24 20:19 Guaifenesin 10 Ml Udc (200mg/10ml) PO Q4H PRN PRN COUGH Heparin Sodium (Porcine) 0 unit 12/05/24 17:30 Heparin Injection (Vial) 5,000 Unit/Ml Vial IV UD PRN dose adjustment Protocol Hydralazine HCl 5 mg 12/05/24 20:19 Hydralazine 20 Mg/Ml Vial IV 12/06/24 20:20 Q30M PRN maintain BP parameters with HR <60 Sodium Chloride 100 mls @ 15 mls/hr 12/05/24 20:00 IV .Q6H40M PRN Saline Flush Sodium Chloride 100 mls @ 15 mls/hr 12/05/24 20:00 IV .Q6H40M PRN Additional IVPB Infusion Heparin Sodium/Dextrose 25,000 units in 250 mls @ 10 mls/hr 12/05/24 20:30 12/06/24 03:46 CONT INF Not Given .Q25H CHRISTIANE Protocol As Directed Labetalol HCl 10 - 20 mg 12/05/24 20:19 Labetalol 20mg/4ml Syringe IV 12/06/24 20:20 Q10M PRN PRN maintain BP parameters with HR >/=60 Levothyroxine Sodium 88 mcg 12/06/24 06:00 12/06/24 05:12 Levothyroxine 88 Mcg Tablet PO 88 mcg DAILY@0600 [facility] Administration Melatonin 3 mg 12/05/24 20:19 Melatonin 3 Mg Tablet PO QHS PRN PRN INSOMNIA Multivitamins 1 tablet 12/05/24 22:00 12/05/24 21:03 Multivitamins,Therapeutic Tablet PO 1 tablet QHS CHRISTIANE Administration Ondansetron HCl 4 mg 12/05/24 20:19 Ondansetron 4 Mg/2 Ml Vial IV Q8H PRN PRN NAUSEA/VOMITING Prochlorperazine Edisylate 5 mg 12/05/24 20:19 Prochlorperazine 10 Mg/2 Ml Vial IV Q4H PRN PRN Breakthrough Nausea/Vomiting Senna/Docusate Sodium 2 tablet 12/05/24 20:19 Senna/Docusate Sodium 1 Tablet PO BID PRN PRN Constipation Sodium Chloride 10 - 40 ml 12/05/24 20:00 0.9% Saline Lock 10 Ml Syringe IV UD PRN SALINE FLUSH
--- NOTE | 2024-12-06 12:35 | PCM.DC.SUM ---
Providers Date of Admission: 12/05/24 Date of Discharge: 12/06/24 Primary Care Physician: JIMMY LOZA Consultations 12/05/24 20:19 Neurology [Consult: Tele-Neurology] Routine Consulting Provider: [facility] Reason for Consult: TIA/CVA EMERGENT Consult: No MD Notified: Yes Date Notified: 12/05/24 Time Notified: 00:19 Method of Notification: Answering Service Nursing Unit Staff Notify [facility] of Tele-Neurology Consult: Yes Reason For Visit: CEREBRAL THROMBUS Diagnosis Discharge Diagnosis (1) Visual disturbance: Status: Acute Code(s): H53.9 - Unspecified visual disturbance (2) Cerebral venous sinus thrombosis, acute: Status: Acute Code(s): G08 - Intracranial and intraspinal phlebitis and thrombophlebitis (3) Elevated blood pressure reading: Status: Acute Code(s): R03.0 - Elevated blood-pressure reading, without diagnosis of hypertension Medications at Discharge Home Medications calcium carbonate (Calcium 600) 1,200 mg PO QHS supplement 12/05/24 collagen,hydrolysate 500 mg-biotin 800 mcg-ascorbic acid 50 mg capsule (Collagen 1500 Plus C) 3 cap PO QHS supplement 12/05/24 levothyroxine 88 mcg tablet (Euthyrox) 88 mcg PO DAILY thyroid 12/05/24 multivitamin (Daily Multi-Vitamin tablet) 1 tab PO QHS vitamin 12/05/24 apixaban 5 mg (74 tabs) tablets in a dose pack (Eliquis DVT-PE Treat 30D Start) See Rx Instructions PO .COMPLEX #74 tabs 12/06/24 Hospital Course Operations None Procedures EKG, Transesophageal Echo and - (MRI brain) Summary of Care Provided Minutes Spent on Discharge: 35 Hospital Course: Patient is a 79-year-old female who presented [facility] ED on 12/05/2024 with vision changes and headache. Short hospital course as noted below. Patient discharged home in stable condition on . 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 Presented with intermittent vision changes and headache for 2 months. 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 Treated with heparin drip while inpatient and had no neurologic symptoms while here. NIHSS score of 0. Per neurology, will treat with Eliquis with loading dose for 3-month course of anticoagulation. Discontinue aspirin while on Eliquis. After 3 months, will repeat MRI brain with contrast and MRV and follow-up with outpatient neurology clinic after that. Will also need outpatient referral to ophthalmology for intermittent vision symptoms. Stable for discharge home on . Hypothyroidism ? Continue home Synthroid. Total clinical time spent by myself addressing the patient's medical issues, reviewing all the data, and collaborating with patient's care team: 35 minutes. Physical Exam Const alert, oriented x3, no apparent distress, average body habitus, healthy appearing and well nourished Constitutional Narrative: Pleasant elderly female, sitting back comfortably in bed, conversing normally, in no acute distress. General Appearance: cooperative, comfortable, well kempt and well developed HEENT normocephalic, head/scalp atraumatic, hearing grossly normal bilaterally, nasal mucous membranes and turbinates normal and moist oral mucous membranes Eyes PERRL, EOMs intact bilaterally and conjunctivae normal Neck full ROM Chest inspection of chest normal Resp normal respiratory effort, normal air movement, no use of accessory muscles and clear to auscultation bilaterally Cardio regular rate, regular rhythm, no murmurs and peripheral pulses 2+ throughout GI normal to inspection, nondistended, normoactive bowel sounds, soft to palpation, non-tender and non-distended Back/Spine normal ROM Extremity normal to inspection, full ROM and no pedal edema Skin no rashes or lesions noted Neuro CN's II-XII intact bilaterally, moves all extremities and no focal motor deficits Speech: speech normal Motor Exam: strength 5/5 throughout Psych mental status grossly normal Weight / BMI Weight Weight: 68.5 kg Body Mass Index (BMI) 26.7 ABG / Lab / Microbiology Data 12/06/24 08:42 12/06/24 08:42 Laboratory: Laboratory Results - last 24 hr 12/05/24 11:00: Magnesium 2.1 12/05/24 17:35: PT 14.3, INR 1.1, APTT 29.6 12/05/24 23:58: APTT 187.8 H* 12/06/24 08:42: WBC 5.5, RBC 3.96 L, Hgb 12.4, Hct 36.6 L, MCV 92.4, MCH 31.3, MCHC 33.9, RDW Std Deviation 43.8, RDW Coeff of Dillan 12.9, Plt Count 180, MPV 9.9, Immature Gran % (Auto) 0.200, Neut % (Auto) 53.7, Lymph % (Auto) 34.0, Elbert % (Auto) 9.4, Eos % (Auto) 2.0, Baso % (Auto) 0.7, Absolute Neuts (auto) 3.0, Absolute Lymphs (auto) 1.88, Nucleated RBC % 0, APTT 61.9 H, Sodium 140, Potassium 4.3, Chloride 105, Carbon Dioxide 24.2, Anion Gap 11, BUN 11, Creatinine 0.78, Estim Creat Clear Calc 54.70, Est GFR (MDRD) Non-Af 78, BUN/Creatinine Ratio 13.8, Glucose 97, Hemoglobin A1c 5.4 L, Calcium 9.8, Total Bilirubin 0.48, AST 22, ALT 11, Alkaline Phosphatase 57, Total Protein 6.8, Albumin 4.1, Globulin 2.7, Albumin/Globulin Ratio 1.5, Triglycerides 66, Cholesterol 210 H, LDL Cholesterol, Calc 118, VLDL Cholesterol 13, HDL Cholesterol 79, Cholesterol/HDL Ratio 2.66, TSH 1.840 Radiography Diagnostic Testing: Radiology Impression Echocardiogram 12/05/24 20:20 Interpretation Summary Normal LV size. Left ventricular systolic function is normal. The left ventricular ejection fraction is 60 %. Mild focal aortic valve calcification. Mean aortic valve gradient 11 mmHg. Ordering Physician: Lucinda Magana Performed By: Wilfrid Barrera RCS D/C Instructions DC O2, CPAP, BIPAP Needs Home O2 Discharge instructions: No Meaningful Use Info Meaningful Use Meaningful Use Diagnoses (Choose all that apply): None applicable Ischemic Stroke Statin Dosing Therapy Reference: STATIN DOSE THERAPY REFERENCE: * Patients > 75 years receive moderate or high dose statin therapy. * Patients 75 years or YOUNGER should receive HIGH intensity statin dose unless contraindicated. You will be required to document reason for non-treatment if statin daily dose does not meet guidelines. HIGH DOSE STATIN THERAPY DAILY Atorvastatin > than or = to 40 mg Rosuvastatin > than or = to 20 mg Amlodipine + Atorvastatin > than or = to 2.5/40 mg Ezetimibe + Simvastatin 10/80 mg Simvastatin 80mg Discharge Plan Admission Admit Date/Time: 12/05/24 18:30 Primary Reason for Your Visit: Vision changes and headache Attending Provider: Enmanuel Pierre Primary Care Provider: JIMMY LOZA Consulting Providers: Ry Dowling; Reymundo Smith; Danielle Goldsmith; Leslee Beavers; Monae Krishna; Spencer Borden; Echo Barrow; Juan Jose Simpson; Jono Osborne; Destin Chester; Cheryl Shine; Leonides Moreno; Nhi Matute; Elizabeth Reno; Patrick Hinds; Jesús Schreiber; Bob Sanford; Magan Perez; Tessy Winslow; Kalie Clark; Larisa Coley Instructions Additional Instructions / Restrictions: Please take Eliquis as instructed on the package; you will be taking 10 mg twice daily for 7 days, followed by 5 mg twice daily going forward. Stop taking aspirin while you are on the Eliquis. Per neurology, plan will be for 3 months of anticoagulation followed by a repeat MRI brain then to determine if further anticoagulation is needed. Please have your primary care doctor send an ophthalmology referral as well for you. Discharge Orders/Prescriptions Prescriptions: New Eliquis DVT-PE Treat 30D Start 5 mg (74 tabs) tablets,dose pack See Rx Instructions .ROUTE .COMPLEX Qty: 74 0RF Rx Instructions: orally per package directions Continued levothyroxine [Euthyrox] 88 mcg tablet 88 mcg PO DAILY multivitamin [Daily Multi-Vitamin] Tablet 1 tab PO QHS calcium carbonate [Calcium 600] 600 mg calcium (1,500 mg) tablet 1,200 mg PO QHS Collagen 1500 Plus C 500 mg-800 mcg- 50 mg capsule 3 cap PO QHS Discontinued aspirin [Adult Aspirin Regimen] 81 mg tablet,delayed release (DR/EC) 81 mg PO DAILY Referrals / Follow Up: JIMMY LOZA [Other] [facility] [Outside] [facility] Doctor,Out of [Non-Staff] - Disposition Disposition (needs filled in before D/C Order can be placed): Home, Self Care Charges/Coding Visit Charges Inpatient E&M: 88886 Disch Hosp >30min
[2024-12-06 12:39] VITALS: BP 136/59; PULSE 60; RESP 18; TEMP 36.6; O2SAT 97
--- NOTE | 2024-12-06 14:10 | CASEMGMT ---
Addendum entered by Charline Langley 01/02/25 09:48: Received VM from pt requesting call back re: f/u appt with neurology. SHERIDAN ROBERSON placed call to pt @ [phone]. Pt asking for name of neurologist that saw her via tele visit and how she should go about getting appt with a neurologist in [place]. She is currently staying in [place], but will be moving back to [place] for the summer months in a couple weeks. Her PCP is in [place] and she has not established with a new PCP yet, stating her daughter has been reaching out to her (daughters) PCP, but is not getting response. SHERIDAN ROBERSON informed her that, per pr instructions, she is to f/u with PCP for order for repeat MRI in 3 months from hospitalization and also referral to certified anesthesiologist assistant. She states she is aware of this, but when she had the neuro tele visit while in the hospital, it was recommended for f/u with a neurologist. SHERIDAN ROBERSON reviewed neuro recommendations and this is stated. SHERIDAN ROBERSON advised pt to f/u with PCP, for repeat MRI and certified anesthesiologist assistant referral, and to discuss possible neuro referral with PCP as well, as PCP may want results from repeat MRI 1st. She voices understanding. She states she will f/u with her PCP in [place] about this. She also wishes to pursue finding a PCP in [place], as she is not sure if the PCP her daughter sees is going to work out. SHERIDAN ROBERSON offered to mail a local PCP directory in [place] to her. She voices appreciation and asks for it to be sent to her daughters' home address ([address] [place] [address]; [place] [address]). SHERIDAN ROBERSON recommended for pt to take [facility] discharge packet w/her to any appts. She states she still has the packet and does plan to take it with her to appts. Pt thanked SHERIDAN ROBERSON for assistance and info and denies having further questions/concerns/needs. 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 Call placed to [facility] and spoke w/pharmacist, [place], who states they cannot apply the card, stating the guidelines state it cannot be used for pt's w/government programs. Call placed to Zeynep @ [facility] retail pharmacy, who states they can apply the card, as this is not an exclusion. Pt made aware and states to have Rx transferred to [facility] retail pharmacy and she will pick it up there. Call placed back to Zeynep and she was made aware to have Rx transferred. Original Note: SHERIDAN ROBERSON note: Discharge order is in. Eliquis has been e-scribed to [facility]. SHERIDAN ROBERSON to room. Pt sitting on edge of bed, family @ bedside. Introduced self and role. Pt made aware Eliquis has been e-scribed to [facility]. She states she can pick this up today. 30-day free trial offer Eliquis card provided to pt and instructed on use. She is aware to f/u with PCP re: refills and states she will have refills Rx sent to [facility], stating she has 100 % coverage for Rx's. She is aware to stop taking ASA while taking the Eliquis. She is also aware to f/u with PCP for ophthalmology appt & for f/u MRI. Her PCP is in [place] and upon further discussion, she decided she is going to get a local PCP as well. She declines needing a local PCP provider list, stating she has already been told by her daughter's PCP that she can start going there if she decides to. Pt states her PCP in [place] had placed her on a Atorvastatin last year, but she was not taking it as prescribed, stating she second-guessed him. She then stated she did start taking it later, but only about [id number] and she is not sure if she should start taking it as he had prescribed. SHERIDAN ROBERSON informed her that Dr Pierre has not ordered this medication @ discharge and to f/u with her PCP to discuss this further w/the PCP as he was the prescribing physician. Pt denies having other discharge questions, needs, or concerns. Asa DHALIWAL RN, CM
--- NOTE | 2024-12-06 14:17 | PHA.DC.MC.R ---
Pharmacy [facility] has performed discharge medication reconciliation and counseling for this patient. 1. APIXABAN 10MG PO BID X 7 DAYS, THEN 5MG BID THEREAFTER The patient's discharge medication list was reviewed for discrepancies and discrepancies were resolved. The patient was counseled on the following discharge medications and changes in medications for homegoing were reviewed. The Reason for Use, instructions for use, and potential side effects were reviewed for all new medications. The patient's questions regarding all of their medications were answered. The patient was able to verbally demonstrate an understanding of their discharge medications. Medications at Discharge Home Medications calcium carbonate (Calcium 600) 1,200 mg PO QHS supplement 12/05/24 collagen,hydrolysate 500 mg-biotin 800 mcg-ascorbic acid 50 mg capsule (Collagen 1500 Plus C) 3 cap PO QHS supplement 12/05/24 levothyroxine 88 mcg tablet (Euthyrox) 88 mcg PO DAILY thyroid 12/05/24 multivitamin (Daily Multi-Vitamin tablet) 1 tab PO QHS vitamin 12/05/24 apixaban 5 mg (74 tabs) tablets in a dose pack (Eliquis DVT-PE Treat 30D Start) See Rx Instructions PO .COMPLEX #74 tabs 12/06/24
[2024-12-06 14:45] VITALS: BP 136/59; PULSE 60; RESP 18; TEMP 36.6; O2SAT 97
== END 2024-12-06 12:39 | disposition home or self-care (01) ==
LOC: ED 18:02 → PCU 19:18
PROVIDERS: Emergency Medicine; Family Medicine; Admitting Provider Student in an Organized Health Care Education/Training Program; Emergency Provider Emergency Medicine; Visit Provider Hospitalist
DX: G08 Intracranial and intraspinal phlebitis and thrombophlebitis (principal); H53.9 Unspecified visual disturbance; R03.0 Elevated blood-pressure reading, without diagnosis of hypertension; Z79.82 Long term (current) use of aspirin; I34.0 Nonrheumatic mitral (valve) insufficiency; Z79.01 Long term (current) use of anticoagulants; E03.9 Hypothyroidism, unspecified; Z79.899 Other long term (current) drug therapy
CPT/HCPCS: 36415; 70544; 70551; 80048; 80053; 80061; 83036; 83735; 84443; 85025; 85610; 85652; 85730; 93005; 93306; 94762; 99221; 99284; Q9957; A4216; G0378